=== PATIENT | female | born 1995 | race Caucasian/White ===

== ENCOUNTER 2020-06-10 15:03 | Emergency (ER) | payer OTHER ==
[~2020-06-10] VITALS: Ht 177.8 cm; Wt 74.1 kg
[2020-06-10 15:12] VITALS: BP 104/67; TEMP 97.5
[2020-06-10 15:55] VITALS: PULSE 68
== END 2020-06-10 15:55 | disposition home or self-care (01) ==
LOC: COL.ER 15:03
DX: S05.01XA Injury of conjunctiva and corneal abrasion without foreign body, right eye, initial encounter (principal); Z87.891 Personal history of nicotine dependence; W54.1XXA Struck by dog, initial encounter